=== PATIENT | male | born 1985 | race Caucasian/White ===

== ENCOUNTER 2018-07-04 17:20 | Emergency (ER) | payer OTHER ==
[~2018-07-04] VITALS: Ht 185.4 cm; Wt 108.9 kg
[~2018-07-04 17:20] MED LIST: AMBIEN10 MG PO; PROZAC20 MG; XANAX0.5 MG PO
[2018-07-04] MEDS ORDERED: TRAMADOL HCL 50 MG TAB PO ONE (17:30)
[2018-07-04] MEDS ORDERED: LABETALOL HCL 5 MG/ML 20ML VIAL IV STA (18:03)
--- NOTE | 2018-07-04 18:39 | Diagnostic Imaging Report ---
Exam: Right foot series, 3 views. Clinical History: Right lateral foot pain after walking on treadmill Comparison: None. Findings: 3 views of the right foot. There is normal bone mineralization. Negative for acute, displaced fracture or dislocation. Joint spaces are preserved. Mild soft tissue swelling in the dorsal aspect of the foot. No osteolytic or osteoblastic lesions. Impression: 1. Mild soft tissue swelling in the dorsal aspect of the foot, without underlying bony abnormality. Signed by: Dr. Elvis Aparicio M.D. on 07/04/2018 6:35 PM
== END 2018-07-04 19:23 | disposition home or self-care (01) ==
LOC: ER 17:20
DX: M79.671 Pain in right foot (principal); Y93.A1 Activity, exercise machines primarily for cardiorespiratory conditioning; Y92.39 Other specified sports and athletic area as the place of occurrence of the external cause; F41.9 Anxiety disorder, unspecified; F32.9 Major depressive disorder, single episode, unspecified
CPT/HCPCS: 99283

== ENCOUNTER → 2019-03-14 | Day surgery (SDC) | payer OTHER ==
[~2019-03-14] MED LIST changes: +ATENOLOL50 MG PO; +BACITRACIN 50,000 UNIT VIAL ONE; +BUPIVACAINE 0.5%/EPI 30 ML SDV INJ ONE; +CEFAZOLIN SOD 2 GM/D5W 50ML 50 ML IV ONE; +DEXAMETHASONE SOD PHOS INJ 4 MG/ML VIAL ONE; +FENTANYL CITRATE/PF 100MCG/2 ML INJ ONE; +GLYCOPYRROLATE INJ 1MG/ 5 ML SYR ONE; +HYDROCODONE/APAP 5MG-325MG TAB ONE; +HYDROMORPHONE 2MG/ML 2 MG/ML ML ONE; +KETOROLAC TROMETHAMINE 30 MG/ML VIAL ONE; +LIDOCAINE 2% /EPINEPHRINE 20 ML SDV INJ ONE; +LIDOCAINE HCL 2% LOCAL INJ 5 ML SDV VIAL INJ ONE; +MIDAZOLAM HCL 2 MG/2 ML VIAL ONE; +NEOSTIGMINE 5 MG/5ML SYR ONE; +OMEPRAZOLE40 MG PO; +ONDANSETRON HCL INJ 2MG/ML 2ML 2 MG/ML VIAL ONE; +PAXIL30 MG PO; +PROPOFOL IV EMULSION 10 MG/ML 20 ML VIAL ONE; +ROPIVACAINE 0.5% 5 MG/ML 30 ML SDV ONE; +SEVOFLURANE INHAL SOLN 250 ML PEN BTL ONE; +TRAZODONE HCL50 MG PO; +TYLENOL WITH C1 EACH PO
--- OUTSIDE RECORDS SUMMARY | 2019-03-14 09:01 | XMS REPORT | Encounter Summary ---
Author Organization Unknown Address [address] [place] [address] Phone [phone] Reason for Visit Medical Complaint Instructions 1. Upper respiratory infection upper respiratory infection (cold): care instructions 2. Allergic rhinitis managing your allergies: care instructions Medrol (Jame) 4 mg tablets in a dose pack 3. Pain in throat sore throat: care instructions rapid strep group A, throat Discussion Note: None recorded. Plan of Care Patient Instructions otc zyrtec as needed. follow up pcp Reminders Provider Appointments None recorded. Lab Rapid Strep Group a, Throat 09/21/2017 [facility] Referral None recorded. Procedures None recorded. Surgeries None recorded. Imaging None recorded. Medications Name Start Date atenolol 50 mg tablet colestipol 1 gram tablet Medrol (Jame) 4 mg tablets in a dose pack take as directed paroxetine 20 mg tablet trazodone 100 mg tablet Viberzi 75 mg tablet Medications Administered None recorded. Vitals Height Weight BMI Blood Pressure 6 ft 2 in 230 lbs 29.5 kg/m2 120/80 mm[Hg] Lab Results Date Name Specimen Result Interpretation Description Value Range Status Address Rapid Strep Group a, Throat Result negative [facility]: [address] [place] [address] Swab Location Left and Right tonsillar pillars [facility]: [address] [place] [address] Allergies Code Code System Name Reaction Severity Status Onset NKDA Problems Name Status Onset Date Source Smoker Active Encounter Impacted Cerumen Active Encounter Acute Sinusitis Active Encounter Seasonal Allergy Active Encounter Gastroenteritis Active Encounter Abnormal Blood Pressure Active Encounter Procedures None recorded. Vaccine List Vaccine Type influenza, injectable, quadrivalent 08/07/2017 influenza, seasonal, injectable 08/07/2015 Social History Smoking Status Current Every Day Smoker Past Encounters 09/21/2017 Upper Respiratory Infection; Allergic Rhinitis; Pain in Throat SEBASTIAN Mancuso-C: [address] [place] [address], Ph. History of Present Illness Juekw-Algiuttabr-Iwijaxw Reported By: Patient HPI: Location: head/sinuses, throat. Quality: sore throat, nasal/sinus congestion. Duration: 6days. Severity: moderate. Onset/Timing: gradual. Context: no sick contacts, no foreign travel, non-smoker, allergies. Modifying factors: OTC medication. Associated Symptoms: no sputum production, no shortness of breath, no wheezing, no change in number of pillows needed to sleep at night, no sweats, no significant weight gain, no significant weight loss, no morning cough, no vomiting, no diarrhea, no rash, no nausea, no fever, no muscle aches, no headache, fatigue, sore throat Review of Systems:ROS as noted in the HPI Review of Systems Basic Reported By: Patient Physical Exam Adult Basic, Adult Male Complete Reported By: Patient Constitutional: General Appearance: healthy-appearing, well-nourished, well-developed. Level of Distress: NAD. Ambulation: ambulating normally Psychiatric: Mental Status: active and alert Eyes: Lids and Conjunctivae: non-injected, no discharge Yyd-Mgpe-Jrlmk-Throat: Ears: no lesions on external ear, no outer ear tenderness, EACs clear, TMs clear, TM mobility normal. Hearing: no hearing loss. Nose: no lesions on external nose, nasal discharge--rhinorrhea; congestion. Lips, Teeth, and Gums: no mouth or lip ulcers. Oropharynx: moist mucous membranes, no erythema, no exudates, tonsils not enlarged Neck: Neck: trachea midline. Lymph Nodes: no cervical LAD Lungs: Respiratory effort: no dyspnea, no tachypnea, no use of accessory muscles, no intercostal retractions. Auscultation: breath sounds normal, good air movement Cardiovascular: Heart Auscultation: RRR, no murmurs
--- OUTSIDE RECORDS SUMMARY | 2019-03-14 09:01 | XMS REPORT | Continuity of Care Document ---
Author Author [facility] Interface Address Unknown Phone Unavailable Problems Problem Status Onset Date Classification Date Reported Comments Source Hypertensive disorder 02/12/2019 Diagnosis 02/12/2019 [facility] Acute tonsillitis 02/12/2019 Diagnosis 02/12/2019 [facility] Abnormal blood pressure 02/01/2019 Diagnosis 02/12/2019 [facility] Body mass index 30+ - obesity 02/01/2019 Diagnosis 02/12/2019 [facility] Seasonal allergic rhinitis 02/01/2019 Diagnosis 02/12/2019 [facility] Generalized aches and pains 02/01/2019 Diagnosis 02/12/2019 [facility] Tachycardia 02/01/2019 Diagnosis 02/12/2019 [facility] Streptococcal sore throat 02/01/2019 Diagnosis 02/12/2019 [facility] Elevated blood-pressure reading without diagnosis of hypertension 06/12/2018 Diagnosis 06/12/2018 [facility] Tinea corporis 06/12/2018 Diagnosis 06/12/2018 [facility] Hidradenitis suppurativa 06/12/2018 Diagnosis 06/12/2018 [facility] Tinea Corporis 06/12/2018 Problem 06/12/2018 [facility] Body Mass Index 30+ - Obesity 06/12/2018 Problem 06/12/2018 [facility] Anxiety 06/12/2018 Problem 02/12/2019 [facility] Gastroesophageal Reflux Disease 06/12/2018 Problem 02/12/2019 [facility] Irritable Bowel Syndrome 06/12/2018 Problem 06/12/2018 [facility] Hidradenitis Suppurativa 06/12/2018 Problem 06/12/2018 [facility] Elevated Blood-pressure Reading without Diagnosis of Hypertension 06/12/2018 Problem 06/12/2018 [facility] Venereal disease screening 04/11/2018 Diagnosis 04/11/2018 [facility] Body mass index 25-29 - overweight 04/11/2018 Diagnosis 04/11/2018 [facility] Urinary tract infectious disease 04/11/2018 Diagnosis 04/11/2018 [facility] Body Mass Index 25-29 - Overweight 04/11/2018 Problem 06/12/2018 [facility] Urinary Tract Infectious Disease 04/11/2018 Problem 04/11/2018 [facility] Venereal Disease Screening 04/11/2018 Problem 04/11/2018 [facility] Candidiasis of mouth 11/24/2017 Diagnosis 11/24/2017 [facility] Cigarette smoker 11/24/2017 Diagnosis 11/24/2017 [facility] Upper respiratory infection 09/21/2017 Diagnosis 09/21/2017 [facility] Allergic rhinitis 09/21/2017 Diagnosis 09/21/2017 [facility] Pain in throat 09/21/2017 Diagnosis 09/21/2017 [facility] Smoker Problem 11/24/2017 [facility] Impacted Cerumen Problem 11/24/2017 [facility] Acute Sinusitis Problem 11/24/2017 [facility] Seasonal Allergy Problem 11/24/2017 [facility] Gastroenteritis Problem 11/24/2017 [facility] Abnormal Blood Pressure Problem 11/24/2017 [facility] Medications Medication Details Route Status Patient Instructions Ordering Provider Order Date Source Atenolol 50 MG Oral Tablet atenolol 50 mg tablet Take 1 tablet every day by oral route as directed for 30 days. Active [facility] Colestipol Hydrochloride 1000 MG Oral Tablet colestipol 1 gram tablet Active [facility] Medrol (Jame) 4 mg tablets in a dose pack Medrol (Jame) 4 mg tablets in a dose pack take as directed Active [facility] Paroxetine Hydrochloride 20 MG Oral Tablet paroxetine 20 mg tablet Active [facility] Trazodone Hydrochloride 100 MG Oral Tablet trazodone 100 mg tablet TAKE 1 TABLET BY MOUTH AT BEDTIME NEEDED FOR INSOMNIA Active [facility] eluxadoline 75 MG Oral Tablet [Viberzi] Viberzi 75 mg tablet Active [facility] Sulfamethoxazole 800 MG / Trimethoprim 160 MG Oral Tablet [Bactrim] Bactrim DS 800 mg-160 mg tablet Take 1 tablet every 12 hours by oral route as directed for 7 days. Active [facility] Paroxetine Hydrochloride 30 MG Oral Tablet paroxetine 30 mg tablet TAKE 1 TABLET BY MOUTH AT BEDTIME Active [facility] Dicyclomine Hydrochloride 20 MG Oral Tablet dicyclomine 20 mg tablet Active [facility] Cephalexin 500 MG Oral Capsule [Keflex] Keflex 500 mg capsule Take 1 capsule every 12 hours by oral route as directed for 10 days. Active [facility] Ketoconazole 20 MG/ML Topical Cream ketoconazole 2 % topical cream APPLY TO THE AFFECTED AREA(S) BY TOPICAL ROUTE ONCE DAILY X 2 WEEKS Active [facility] Omeprazole 40 MG Delayed Release Oral Capsule omeprazole 40 mg capsule,delayed release TAKE 1 CAPSULE BY MOUTH EVERY DAY Active [facility] Lidocaine Hydrochloride 20 MG/ML Mucous Membrane Topical Solution Lidocaine Viscous 2 % mucosal solution Take 2.5 mL every 3 hours by oral route as needed. Active [facility] Nystatin 315303 UNT/ML Oral Suspension nystatin 100,000 unit/mL oral suspension Take 6 mL 4 times a day by oral route as directed for 10 days. Active [facility] Ondansetron 4 MG Disintegrating Oral Tablet ondansetron 4 mg disintegrating tablet DISSOLVE 1 TABLET BY MOUTH EVERY 6 HOURS NEEDED FOR NAUSEA AND VOMITING Active [facility] Amoxicillin 875 MG Oral Tablet amoxicillin 875 mg tablet Take 1 tablet every 12 hours by oral route as directed for 10 days. Active [facility] Azithromycin 250 MG Oral Tablet Zithromax Z-Jame 250 mg tablet TAKE 2 TABLETS (500 MG) BY ORAL ROUTE ONCE DAILY FOR 1 DAY THEN 1 TABLET (250 MG) BY ORAL ROUTE ONCE DAILY FOR 4 DAYS Active [facility] Alprazolam (Xanax) 0.5 Mg Tablet Twice A Day Active [facility] Fluoxetine Hcl (Prozac) 20 Mg Capsule Daily Active [facility] Zolpidem Tartrate (Ambien) 10 Mg Tablet Bedtime Active [facility] Allergies, Adverse Reactions, Alerts Substance Category Reaction Severity Reaction type Status Date Reported Comments Source Immunizations Immunization Date Given Site Status Last Updated Comments Source Tdap 11/08/2018 completed [facility] influenza, injectable, quadrivalent 08/14/2018 completed [facility] influenza, injectable, quadrivalent 08/07/2017 completed [facility] influenza, seasonal, injectable 08/07/2015 completed [facility] Results Order Name Results Value Reference Range Date Interpretation Comments Source RESULT negative 02/12/2019 [facility] SWAB LOCATION Left and Right tonsillar pillars 02/12/2019 [facility] Influenza A negative 02/12/2019 [facility] Influenza B negative 02/12/2019 [facility] RESULT positive 02/12/2019 [facility] SWAB LOCATION Left and Right tonsillar pillars 02/12/2019 [facility] Influenza A negative 02/01/2019 [facility] Influenza B negative 02/01/2019 [facility] RESULT positive 02/01/2019 [facility] SWAB LOCATION Left and Right tonsillar pillars 02/01/2019 [facility] Urinalysis macro (dipstick) panel - Urine COLOR : Lily 04/11/2018 [facility] Urinalysis macro (dipstick) panel - Urine CLARITY : Cloudy 04/11/2018 [facility] Urinalysis macro (dipstick) panel - Urine LEUKOCYTES : Negative 04/11/2018 [facility] Urinalysis macro (dipstick) panel - Urine NITRITES : Negative 04/11/2018 [facility] Urinalysis macro (dipstick) panel - Urine UROBILINOGEN : Normal 04/11/2018 [facility] Urinalysis macro (dipstick) panel - Urine PROTEIN : Trace 04/11/2018 [facility] Urinalysis macro (dipstick) panel - Urine pH : 8.0 04/11/2018 [facility] Urinalysis macro (dipstick) panel - Urine BLOOD : Negative 04/11/2018 [facility] Urinalysis macro (dipstick) panel - Urine SPECIFIC GRAVITY : 1.015 04/11/2018 [facility] Urinalysis macro (dipstick) panel - Urine KETONES : Negative 04/11/2018 [facility] Urinalysis macro (dipstick) panel - Urine BILIRUBIN : Negative 04/11/2018 [facility] Urinalysis macro (dipstick) panel - Urine GLUCOSE Negative 04/11/2018 [facility] RESULT negative 09/21/2017 [facility] SWAB LOCATION Left and Right tonsillar pillars 09/21/2017 [facility] Vital Signs Vital Sign Value Date Comments Source Diastolic (mm Hg) 80 02/12/2019 [facility] Height 74 02/12/2019 [facility] Systolic (mm Hg) 120 02/12/2019 [facility] Weight 252 02/12/2019 [facility] Diastolic (mm Hg) 76 02/01/2019 [facility] Height 74 02/01/2019 [facility] Systolic (mm Hg) 120 02/01/2019 [facility] Weight 252 02/01/2019 [facility] Diastolic (mm Hg) 78 06/12/2018 [facility] Height 74 06/12/2018 [facility] Systolic (mm Hg) 120 06/12/2018 [facility] Weight 235 06/12/2018 [facility] Diastolic (mm Hg) 78 04/11/2018 [facility] Height 74 04/11/2018 [facility] Systolic (mm Hg) 114 04/11/2018 [facility] Weight 228 04/11/2018 [facility] Diastolic (mm Hg) 86 11/24/2017 [facility] Height 74 11/24/2017 [facility] Systolic (mm Hg) 122 11/24/2017 [facility] Weight 228 11/24/2017 [facility] Diastolic (mm Hg) 80 09/21/2017 [facility] Height 74 09/21/2017 [facility] Systolic (mm Hg) 120 09/21/2017 [facility] Weight 230 09/21/2017 [facility] Encounters Location Location Details Encounter Type Encounter Number Reason For Visit Attending Provider ADM Date DC Date Status Source [place] - [facility] - [id number] Varinder Ramirez, [employer]IOR [employer]OPER-C: [address] [place] [address], Ph. [phone] [id number] Varinder Ramirez 09/21/2017 [facility] [place] [facility] - [id number] Clarisamiriam Sosa, S[employer]IOR IN[employer] DEVELOPER-C: [address] [place] [address], Ph. [id number] Clarisa Sosa 11/24/2017 [facility] [place] [facility] - [id number] Clarisamiriam Sosa, S[employer]IOR IN[employer] DEVELOPER-C: [address] [place] [address], Ph. [id number] Clarisa Sosa 04/11/2018 [facility] [place] [facility] - [id number] Clarisamiriam Sosa SENIOR IN[employer] DEVELOPER-C: [address] [place] [address], Ph. [id number] Clarisa Sosa 06/12/2018 [facility] Departed Emergency Room [id number] VIRGIL DILLARD MD 07/04/2018 07/04/2018 [facility] [place] - [facility] - [id number] Raiza Ramirez, SENIOR INFORMATICA DEVELOPER: [address] [place] [address], Ph. [id number] Raiza Ramirez 02/01/2019 [facility] [place] [facility] - [id number] Raiza Ramirez, SENIOR INFORMATICA DEVELOPER: [address] [place] [address], Ph. [id number] Raiza Ramirez 02/01/2019 [facility] [place] [facility] [id number] Mima Hurtado, SENIOR IN[employer] DEVELOPER-C: [address] [place] [address], Ph. [id number] Mima Hurtado 02/12/2019 [facility] Procedures Procedure Code Date Perfomer Comments Source Fistula Repair & Colostomy 31235 04/05/2018 [facility] Leg Surgery Procedure [id number] [facility]
--- OUTSIDE RECORDS SUMMARY | 2019-03-14 09:01 | XMS REPORT | Encounter Summary ---
Author Organization Unknown Address [address] [place] [address] Phone [phone] Reason for Visit Medical Complaint Instructions 1. Streptococcal sore throat rapid strep group A, throat strep throat: care instructions amoxicillin 875 mg tablet 2. Tachycardia atenolol 50 mg tablet 3. Generalized aches and pains rapid flu (A+B) 4. Seasonal allergic rhinitis 5. Body mass index 30+ - obesity learning about healthy weight 6. Abnormal blood pressure Discussion Note Work note given to RTW 02/05/19 Plan of Care Patient Instructions Take antibiotic as prescribed. Handwashing. Increase fluid intake and plenty of rest. May take tynenol/motrin for pain. may use cloraseptic throat spray for sore throat. Gargles warm salt water, cepacol. Throw away old toothbrush after 3 days of antibiotic. Avoid sharing drinks/utensils. If no improvement in 3 days, or worsening of symptoms, see primary care physician or call clinic. ok to continue flonase, add zyrtec 10mg daily for allergies Continue to check bp at home. If trend over 130/90s, follow up with pcp. Avoid otc decongestants. Reminders Provider Appointments None recorded. Lab Rapid Strep Group a, Throat 02/01/2019 [facility] Rapid Flu (A+B) 02/01/2019 [facility] Referral None recorded. Procedures None recorded. Surgeries None recorded. Imaging None recorded. Medications Name Start Date amoxicillin 875 mg tablet Take 1 tablet every 12 hours by oral route as directed for 10 days. atenolol 50 mg tablet Take 1 tablet every day by oral route as directed for 30 days. omeprazole 40 mg capsule,delayed release TAKE 1 CAPSULE BY MOUTH EVERY DAY paroxetine 30 mg tablet TAKE 1 TABLET BY MOUTH AT BEDTIME trazodone 100 mg tablet TAKE 1 TABLET BY MOUTH AT BEDTIME NEEDED FOR INSOMNIA Medications Administered None recorded. Vitals Height Weight BMI Blood Pressure 6 ft 2 in 252 lbs 32.4 kg/m2 (1) 120/76 mm[Hg] (2) 120/76 mm[Hg] Lab Results Date Name Specimen Result Interpretation Description Value Range Status Address Rapid Flu (A+B) Influenza a negative [facility]: [address] [facility] Influenza B negative [facility]: [address] [facility] Rapid Strep Group a, Throat Result positive [facility]: [address] [facility] Swab Location Left and Right tonsillar pillars [facility]: [address] [facility] Allergies Code Code System Name Reaction Severity Status Onset NKDA Problems Name Status Onset Date Source Anxiety Active 06/12/2018 Gastroesophageal Reflux Disease Active 06/12/2018 Procedures Date Name Performed by 04/05/2018 Fistula Repair & Colostomy Information not available Leg Surgery Procedure Information not available Vaccine List Vaccine Type influenza, injectable, quadrivalent 08/14/2018 influenza, seasonal, injectable 08/07/2015 Tdap 11/08/2018 Social History Smoking Status Former Smoker Past Encounters 02/01/2019 Streptococcal Sore Throat; Tachycardia; Generalized Aches and Pains; Seasonal Allergic Rhinitis; Body Mass Index 30+ - Obesity; Abnormal Blood Pressure RAPHAEL AhmadiP: [address] [facility] [place] [address], Ph. History of Present Illness Throat-Oral Complaint Reported By: Patient HPI: Location: throat. Quality: sore throat. Severity: severe. Duration: 3 days. Onset/Timing: sudden. Context: no sick contacts, no foreign travel, non-smoker. Modifying factors: OTC medication. Associated Symptoms: no fever, no headache, no sputum production, no shortness of breath, no wheezing, no change in number of pillows needed to sleep at night, no sweats, no significant weight gain, no significant weight loss, no morning cough, no vomiting, no diarrhea, no rash, no nausea, body aches, sore throat One Time Refill Reported By: Patient HPI: Context: Patient here for medication refill, Why does patient require med refills at [facility]? (double click for free text answer). Quality: What medical problems does patient require refills for? (double click for free text), What medications does patient require refills for? (double click for free text). Duration: How long has patient been taking above medications? > 1 year. Onset/Timing: How long has patient been out of medication? still has some Review of Systems Basic Reported By: Patient Constitutional: Constitutional: no fever Eyes: Eyes: no eye complaints Ylyp-Bbxr-Ismen-Throat: Ears: no ear complaints. Nose: no nose/sinus problems. Mouth/Throat: no bleeding gums, no mouth complaints, no teeth problems, sore throat Cardiovascular: Cardiovascular: no chest pain, no shortness of breath, no known heart murmur Respiratory: Respiratory: no cough, no wheezing, no shortness of breath Gastrointestinal: Gastrointestinal: no abdominal pain, no vomiting / diarrhea Genitourinary: Genitourinary: no urinary complaints, no discharge Musculoskeletal: Musculoskeletal: no muscle weakness, no arthralgias/joint pain, no back pain, muscle aches Skin: Skin: no abnormal / changing mole, no jaundice, no rashes Neurologic: Neurologic: no loss of consciousness, no weakness, no numbness, no seizures, no dizziness, no headaches Physical Exam Adult Basic, Adult Female Complete, Adult Male Complete, 14-21 Yr Females Reported By: Patient Constitutional: General Appearance: obese. Level of Distress: acutely ill. Ambulation: ambulating normally Psychiatric: Mental Status: active and alert, normal affect, normal mood. Orientation: to time, to place, to person Eyes: Lids and Conjunctivae: non-injected, no discharge, no pallor. Pupils: PERRLA, equal size, round, reactive to light. Corneas: grossly intact. EOM: EOMI, normal cover/uncover test. Lens: clear. Sclerae: non-icteric. Vision: acuity grossly intact Trp-Hwjp-Shyzo-Throat: Ears: no lesions on external ear, no outer ear tenderness, EACs clear, TMs clear, middle ear fluid. Hearing: no hearing loss. Nose: no lesions on external nose, nares patent, no septal deviation, nasal passages clear, no sinus tenderness, no nasal discharge; rhinitis. Lips, Teeth, and Gums: no mouth or lip ulcers, no bleeding gums, normal dentition. Oropharynx: moist mucous membranes, erythema, exudates, tonsils enlarged 2+ Neck: Neck: supple, trachea midline, no masses, FROM. Lymph Nodes: no supraclavicular LAD, anterior cervical LAD. Thyroid: no enlargement, non-tender, no nodules, no asymmetry Lungs: Respiratory effort: no dyspnea, no tachypnea, no use of accessory muscles, no intercostal retractions. Auscultation: breath sounds normal, clear to auscultation, no wheezing, no rales/crackles, no rhonchi, no retractions Cardiovascular: Heart Auscultation: RRR, no murmurs, no gallops, no rub, normal femoral pulse. Neck vessels: no carotid bruits. Apical impulse: not displaced. Rate and rhythm: regular
--- OUTSIDE RECORDS SUMMARY | 2019-03-14 09:01 | XMS REPORT | Clinical Summary ---
Author Author [facility] Address Unknown Phone Unavailable Care Team Providers Care Public Health Technologist Name Role Phone Warren Hanks MD PCP Allergies Comments Active Allergy Reactions Severity Noted Date No Known Drug Allergies 09/27/2016 Medications End Date Status Medication Sig Dispensed Refills Start Date Active sertraline (ZOLOFT) 50 MG Take 50 mg by 0 tablet mouth daily. Active atenolol (TENORMIN) 50 MG TK 1 T PO D 2 tablet 7 Active temazepam (RESTORIL) 15 Take 15 mg by 0 mg capsule mouth nightly 7 as needed. Active PARoxetine (PAXIL) 30 MG Take 30 mg by 0 tablet mouth every morning. Active traZODone (DESYREL) 100 Take 100 mg 0 MG tablet by mouth nightly as needed for sleep. Active omeprazole (PriLOSEC) 40 Take 40 mg by 0 MG capsule mouth daily. Active dicyclomine (BENTYL) 20 Take 20 mg by 0 mg tablet mouth 4 (four) times a day. 03/16/2019 Active acetaminophen-codeine Take 1-2 15 tablet 0 (TYLENOL WITH CODEINE #3) tablets by 9 300-30 mg per tablet mouth every 6 (six) hours as needed for moderate pain for up to 5 days. 03/16/2019 Active cyclobenzaprine Take 1 tablet 15 tablet 0 (FLEXERIL) 10 mg tablet (10 mg total) 9 by mouth 2 (two) times a day as needed for muscle spasms for up to 5 days. Active Problems Problem Noted Date Pilonidal cyst without abscess 09/27/2016 Encounters Care Team Description Date Type Specialty Aida Gambino MD Closed displaced comminuted fracture of shaft of left humerus, initial encounter (Primary Dx) 03/11/2019 Emergency Emergency Medicine Denisha Dias 07/17/2018 Documentation General Surgery Harry Mauricio MD Anal fistula (Primary Dx) 05/24/2018 Office Visit General Surgery Harry Mauricio MD Anal fistula (Primary Dx) 04/19/2018 Office Visit General Surgery Harry Mauricio MD Anal fistula (Primary Dx) 03/15/2018 Office Visit General Surgery after 03/13/2018 Family History Medical History Relation Name Comments Cancer Maternal urinary bladder Grandmother Lymphoma Paternal Grandmother Relation Name Status Comments Maternal Grandmother Mother Alive Paternal Grandmother Social History Date Tobacco Use Types Packs/Day Years Used Current Every Day Smoker 16 Smokeless Tobacco: Never Used Comments: 1 PPW Alcohol Use Drinks/Week oz/Week Comments Yes 5 Cans of 3.0 socially beer Sex Assigned at Date Recorded Not on file Industry Job Start Date Occupation Not on file Not on file Not on file Travel End Travel History Travel Start No recent travel history available. Last Filed Vital Signs Time Taken Vital Sign Reading 03/11/2019 5:56 AM CDT Blood Pressure 118/62 03/11/2019 5:56 AM CDT Pulse 80 03/11/2019 2:06 AM CDT Temperature 36.5 C (97.7 F) 03/11/2019 5:56 AM CDT Respiratory Rate 18 03/11/2019 5:56 AM CDT Oxygen Saturation 99% - Inhaled Oxygen - Concentration 03/11/2019 2:07 AM CDT Weight 111 kg (245 lb) 03/11/2019 2:07 AM CDT Height 185.4 cm (6' 1") 03/11/2019 2:07 AM CDT Body Mass Index 32.32 Plan of Treatment Health Maintenance Due Date Last Done Comments INFLUENZA VACCINE 06/07/2019 08/07/2017, 08/07/2015 Procedures Comments Procedure Name Priority Date/Time Associated Diagnosis XR HUMERUS LEFT STAT 03/11/2019 4:47 AM CDT XR ELBOW 2 VW LEFT STAT 03/11/2019 3:34 AM CDT XR FOREARM 2 VW LEFT STAT 03/11/2019 3:33 AM CDT SPLINT APPLICATION Routine 03/11/2019 3:21 AM CDT after 03/13/2018 Results * XR Humerus Left (03/11/2019 4:47 AM CDT) Narrative Performed At EXAMINATION:XR HUMERUS LEFT RADIANT CLINICAL HISTORY:Fracturehumerus COMPARISON:Left elbow series dated 03/11/2019 at 2:15 AM IMPRESSION: Overlying cast has been placed, obscuring visualization of details. Acute somewhat comminuted fracture of the distal diaphysis of the left humerus is seen. Visualized fracture fragments are improved in alignment when compared with previous exam. There is 0.7 cm lateral subluxation of distal fracture fragment with regard to proximal. Visualized joint spaces are anatomic. Soft tissue swelling is seen about the fracture site. [id number] Procedure Note Interface, Radiology Results Incoming - 03/11/2019 5:12 AM CDT EXAMINATION: XR HUMERUS LEFT CLINICAL HISTORY: Fracture humerus COMPARISON: Left elbow series dated 03/11/2019 at 2:15 AM IMPRESSION: Overlying cast has been placed, obscuring visualization of details. Acute somewhat comminuted fracture of the distal diaphysis of the left humerus is seen. Visualized fracture fragments are improved in alignment when compared with previous exam. There is 0.7 cm lateral subluxation of distal fracture fragment with regard to proximal. Visualized joint spaces are anatomic. Soft tissue swelling is seen about the fracture site. [id number] Performing Organization Address City/State/Zipcode Phone Number [facility] [address] [place] [address] * XR Elbow 2 Vw Left (03/11/2019 3:34 AM CDT) Narrative Performed At EXAMINATION:XR ELBOW 2 VW LEFT RADIANT CLINICAL HISTORY:arm pain after arm wrestling COMPARISON:None. IMPRESSION: Acute fracture of the distal humerus is seen. There is 2.1 cm diastasis of fracture fragments. Visualized joint spaces are anatomic. Soft tissue swelling about the fracture site is seen. [id number] Procedure Note Interface, Radiology Results Incoming - 03/11/2019 4:40 AM CDT EXAMINATION: XR ELBOW 2 VW LEFT CLINICAL HISTORY: arm pain after arm wrestling COMPARISON: None. IMPRESSION: Acute fracture of the distal humerus is seen. There is 2.1 cm diastasis of fracture fragments. Visualized joint spaces are anatomic. Soft tissue swelling about the fracture site is seen. [id number] Performing Organization Address [facility] Phone Number [facility] [address] [place] [address] * XR Forearm 2 Vw Left (03/11/2019 3:33 AM CDT) Narrative Performed At EXAMINATION:XR FOREARM 2 VW LEFT RADIANT CLINICAL HISTORY:arm pain COMPARISON:None. IMPRESSION: Acute fracture of the distal diaphysis of the left humerus is seen. There is 2.3 cm anterior subluxation of proximal fracture fragment with regard to distal, with posterior angulation at fracture site. Questionable fracture of base of fifth metacarpal. This would be better assessed with dedicated left hand series. Visualized joint spaces are anatomic. Soft tissue swelling about the humerus fracture site is seen. [id number] Procedure Note Hm Interface, Radiology Results Incoming - 03/11/2019 5:08 AM CDT EXAMINATION: XR FOREARM 2 VW LEFT CLINICAL HISTORY: arm pain COMPARISON: None. IMPRESSION: Acute fracture of the distal diaphysis of the left humerus is seen. There is 2.3 cm anterior subluxation of proximal fracture fragment with regard to distal, with posterior angulation at fracture site. Questionable fracture of base of fifth metacarpal. This would be better assessed with dedicated left hand series. Visualized joint spaces are anatomic. Soft tissue swelling about the humerus fracture site is seen. [facility]-[id number] Performing Organization Address [facility] Phone Number [facility] [address] [place] [address] * Splint Application (03/11/2019 3:21 AM CDT) Narrative Performed At Aida Gambino MD 03/11/20195:32 AM Splint Application Performed by: Aida Gambino MD Authorized by: Aida Gambino MD Consent: Consent obtained:Verbal Consent given by:Patient Risks discussed:Pain Pre-procedure details: Sensation:Normal Procedure details: Laterality:Left Location:Arm Arm:L upper arm Splint type: coaptation. Supplies:Cotton padding, Ortho-Glass and sling Post-procedure details: Pain:Improved Sensation:Normal Patient tolerance of procedure:Tolerated well, no immediate complications after 03/13/2018 Insurance Payer Benefit Subscriber ID Type Phone Address Plan / Group [facility] xxxxxxxxx HMO/PPO THCARE CHOICE/CHO ICE + Advance Directives Patient has advance care planning documents on file. For more information, lalita tan contact: Johnathan Oconnor [address] [place] [address]
--- OUTSIDE RECORDS SUMMARY | 2019-03-14 09:02 | XMS REPORT | Encounter Summary ---
Author Organization Unknown Address [address] [place] [address] Phone [phone] Reason for Visit Medical Complaint Instructions 1. Urinary tract infectious disease urinary tract infections in men: care instructions urinalysis, dipstick culture, urine Bactrim DS 800 mg-160 mg tablet patient follow up phone call 2. Venereal disease screening CT + NG DNA, PCR, unspecified specimen 3. Body mass index 25-29 - overweight body mass index: care instructions Discussion Note Pt is in NAD; Verbalizes understanding of all instructions with no questions at this time. Plan of Care Patient Instructions Recommend proper hydration and frequent urination. Recommend urinating after sexual intercourse. Avoid using tubs. Take medications as prescribed. Follow up with your PCP within 2-3 days if symptoms worsen as discussed. Recommend follow a low sodium/fat/carb diet and exercise 30-45 mins/d 3-4 days a week once symptoms resolve. In case of an emergency call 911 or go to nearest ER. Reminders Provider Appointments None recorded. Lab Urinalysis, Dipstick 04/11/2018 [facility] Culture, Urine 04/11/2018 [facility] CT + NG DNA, PCR, Unspecified Specimen 04/11/2018 [facility] Referral None recorded. Procedures None recorded. Surgeries None recorded. Imaging None recorded. Medications Name Start Date atenolol 50 mg tablet TAKE 1 TABLET BY MOUTH EVERY DAY Bactrim DS 800 mg-160 mg tablet Take 1 tablet every 12 hours by oral route as directed for 7 days. paroxetine 30 mg tablet TAKE 1 TABLET BY MOUTH AT BEDTIME trazodone 100 mg tablet TAKE 1 TABLET(S) BY MOUTH AT BEDTIME NEEDED Medications Administered None recorded. Vitals Height Weight BMI Blood Pressure 6 ft 2 in 228 lbs 29.3 kg/m2 114/78 mm[Hg] Lab Results Date Name Specimen Result Interpretation Description Value Range Status Address Urinalysis, Dipstick Color : Lily [facility]: [address] [place] [address] Clarity : Cloudy [facility]: [address] [place] [address] Leukocytes : Negative [facility]: [facility] Nitrites : Negative [facility]: 9 [facility] Urobilinogen : Normal [facility]: 9 [facility] Protein : Trace [facility]: 9 [facility] Ph : 8.0 [facility]: 9 [facility] Blood : Negative [facility]: [facility] Specific [place] : 1.015 [facility]: 9 [facility] Ketones : Negative [facility]: 9 [facility] Bilirubin : Negative [facility]: 9 [facility] Glucose Negative [facility]: 9 [facility] Allergies Code Code System Name Reaction Severity Status Onset NKDA Problems Name Status Onset Date Source Body Mass Index 25-29 - Overweight Active 04/11/2018 Urinary Tract Infectious Disease Active 04/11/2018 Venereal Disease Screening Active 04/11/2018 Procedures Date Name Performed by 04/05/2018 Fist[facility] Repair [facility] Colostomy Information not available Vaccine List Vaccine Type influenza, injectable, quadrivalent 08/07/2017 influenza, seasonal, injectable 08/07/2015 Social History Smoking Status Former Smoker Past Encounters 04/11/2018 Urinary Tract Infectious Disease; Venereal Disease Screening; Body Mass Index 25-29 - Overweight Clarisa Sosa, [facility]-C: [address] [place] [address], Ph. History of Present Illness [id number]-Hernia Reported By: Patient HPI: Location: bladder. Quality: pressure. Severity: moderate. Duration: constant. Onset/Timing: worse, gradual. Context: no prior history of STDs, no known exposure to STD, sexually active, heterosexual; Pt had an anal fistulectomy done about a week ago. Pt is afebrile. Modifying factors nothing gives relief. Associated Symptoms: no muscle aches, no fever/chills, no headache, no penile lesions/sores, no scrotal lesions/sores, no penile discharge, no flank pain, no jaundice, no blood in the urine, pain during urination; and suprapubic pain Review of Systems Basic Reported By: Patient Constitutional: Constitutional: no fever Eyes: Eyes: no eye complaints Gcaa-Jvsj-Mwulq-Throat: Ears: no ear complaints. Nose: no nose/sinus problems. Mouth/Throat: no sore throat, no bleeding gums, no mouth complaints, no teeth problems Cardiovascular: Cardiovascular: no chest pain, no shortness of breath, no known heart murmur Respiratory: Respiratory: no cough, no wheezing, no shortness of breath Gastrointestinal: Gastrointestinal: no abdominal pain, no vomiting / diarrhea Genitourinary: Genitourinary: no discharge, dysuria; and suprapubic pain Musculoskeletal: Musculoskeletal: no muscle aches, no muscle weakness, no arthralgias/joint pain, no back pain Skin: Skin: no abnormal / changing mole, no jaundice, no rashes Neurologic: Neurologic: no loss of consciousness, no weakness, no numbness, no seizures, no dizziness, no headaches Physical Exam Adult Basic, Adult Male Complete Reported By: Patient Constitutional: General Appearance: healthy-appearing, well-nourished, well-developed, overweight. Level of Distress: NAD. Ambulation: ambulating normally Psychiatric: Mental Status: active and alert. Orientation: to time, to place, to person Eyes: Lids and Conjunctivae: non-injected Neck: Neck: supple. Lymph Nodes: no cervical LAD Lungs: Respiratory effort: no dyspnea, no tachypnea, no use of accessory muscles, no intercostal retractions. Auscultation: breath sounds normal, good air movement Cardiovascular: Heart Auscultation: RRR, no murmurs Abdomen: Bowel Sounds: normal. Inspection and Palpation: soft, no tenderness, no guarding, no rebound tenderness, no masses, no CVA tenderness. Hernia: none palpable
--- OUTSIDE RECORDS SUMMARY | 2019-03-14 09:02 | XMS REPORT | Encounter Summary ---
Author Organization Unknown Address [address] [place] [address] Phone [phone] Reason for Visit Medical Complaint Instructions 1. Candidiasis of mouth candidiasis: care instructions nystatin 100,000 unit/mL oral suspension Lidocaine Viscous 2 % mucosal solution 2. Cigarette smoker Discussion Note Pt is in NAD; Verbalizes understanding of all instructions with no questions at this time. Plan of Care Patient Instructions Swish and spit Nystatin suspension as directed for oral thrush.Alternate with Ibuprofen and acetaminophen every 4hrs as needed for pain. Use a q tip and saturate it with viscous lidocaine and use as directed on sore. Alternate with Ibuprofen and acetaminophen every 4hrs as needed for pain Proper hydration and rest. Do not share any utensils/cups, no kissing. Frequent handwashing recommended. Take medications as prescribed. Return to clinic or follow up with your PCP within 2-3 days if symptoms worsen as discussed. I recommend smoking cessation. Reminders Provider Appointments None recorded. Lab None recorded. Referral None recorded. Procedures None recorded. Surgeries None recorded. Imaging None recorded. Medications Name Start Date atenolol 50 mg tablet TAKE 1 TABLET BY MOUTH EVERY DAY colestipol 1 gram tablet dicyclomine 20 mg tablet TAKE 1 TABLET BY MOUTH 3 TIMES A DAY NEEDED FOR MILD PAIN Lidocaine Viscous 2 % mucosal solution Take 2.5 mL every 3 hours by oral route as needed. nystatin 100,000 unit/mL oral suspension Take 6 mL 4 times a day by oral route as directed for 10 days. ondansetron 4 mg disintegrating tablet DISSOLVE 1 TABLET BY MOUTH EVERY 6 HOURS NEEDED FOR NAUSEA AND VOMITING paroxetine 30 mg tablet TAKE 1 TABLET BY MOUTH AT BEDTIME trazodone 100 mg tablet TAKE 1 TABLET(S) BY MOUTH AT BEDTIME NEEDED Medications Administered None recorded. Vitals Height Weight BMI Blood Pressure 6 ft 2 in 228 lbs 29.3 kg/m2 122/86 mm[Hg] Lab Results None recorded. Allergies Code Code System Name Reaction Severity [...] Status Current Every Day Smoker Past Encounters 11/24/2017 Candidiasis of Mouth; Cigarette Smoker Clarisa Sosa, [employer]: [address] [place] [address], Ph. History of Present Illness Throat-Oral Complaint Reported By: Patient HPI: Location: ; togue. Quality: ; pain. Severity: moderate, pain level /10. Duration: ; sore lesion on back of tongue since this morning and white patches on tongue x 4 days. Onset/Timing: sudden. Context: no sick contacts, no foreign travel, smoker; Pt reports he finished yesterday a 2-week course of ciprofloxacin and metronidazole for treatment of bacterial gastroenteritis. Last colonoscopy on 08/2017: benign polyps. Modifying factors: ; none. Associated Symptoms: no fever, no headache, no body aches, no sputum production, no shortness of breath, no wheezing, no change in number of pillows needed to sleep at night, no sweats, no significant weight gain, no significant weight loss, no morning cough, no sore throat, no vomiting, no diarrhea, no rash, no nausea; sore lesion on back of tongue since this morning and white patches on tongue Note:
Review of Systems:ROS as noted in the HPI Review of Systems Basic Reported By: Patient Physical Exam Adult Basic, 14-21 Yr Male, Adult Female Complete, Adult Male Complete Reported By: Patient Constitutional: General Appearance: healthy-appearing, well-nourished, well-developed. Level of Distress: NAD. Ambulation: ambulating normally Psychiatric: Mental Status: active and alert. Orientation: to time, to place, to person Pov-Bqrd-Qcqzb-Throat: Ears: no lesions on external ear, no outer ear tenderness, EACs clear, TMs clear. Hearing: no hearing loss. Nose: no lesions on external nose, nares patent, no septal deviation, nasal passages clear, no sinus tenderness, no nasal discharge. Lips, Teeth, and Gums: no mouth or lip ulcers, no bleeding gums, normal dentition; white plaques on tongue. Oropharynx: moist mucous membranes, no erythema, no exudates, tonsils not enlarged Neck: Lymph Nodes: no cervical LAD Lungs: Respiratory effort: no dyspnea, no tachypnea, no use of accessory muscles, no intercostal retractions. Auscultation: breath sounds normal Cardiovascular: Heart Auscultation: RRR, no murmurs Neurologic: Gait and Station: normal gait, normal station Skin: Inspection and palpation: ulcer; white patches on tongue
--- OUTSIDE RECORDS SUMMARY | 2019-03-14 09:02 | XMS REPORT ---
Author Author [facility] Address Unknown Phone Unavailable Care Team Providers Care Wood Pile Driver Operator Name Role Phone Shauna DILLARD Unavailable Unavailable Problems This patient has no known problems. Allergies, Adverse Reactions, Alerts This patient has no known allergies or adverse reactions. Medications This patient has no known medications. Results Test Description Test Time Test Comments Text Results Atomic Results Result Comments FOOT RIGHT COMPLETE 2018-07-04 18:34:00 [facility] [address] [place] [address] Patient Name: MARIANGEL JORDAN MR #: [id number] : 1985 Age/Sex: 32/M Req #: [id number] Adm Physician: Ordered by: ARNULFO SAVAGE ACOUSTICS TEACHER Report #: [id number] Location: ER Room/Bed: Procedure: [id number] DX/FOOT RIGHT COMPLETE Exam Date: Exam Time: REPORT STATUS: Signed Exam: Right foot series, 3 views. Clinical History: Right lateral foot pain after walking on treadmill Comparison: None. Findings: 3 views of the right foot. There is normal bone mineralization. Negative for acute, displaced fracture or dislocation. Joint spaces are preserved. Mild soft tissue swelling in the dorsal aspect of the foot. No osteolytic or osteoblastic lesions. Impression: 1. Mild soft tissue swelling in the dorsal aspect of the foot, without underlying bony abnormality. Signed by: Tiffany Griffiths.D. on 07/04/2018 6:35 PM Dictated By: TOMAS MARTINEZ MD 34 Transcribed By: TU on 07/04/181834 COPY TO: ARNULFO SAVAGE NP
--- OUTSIDE RECORDS SUMMARY | 2019-03-14 09:02 | XMS REPORT | Encounter Summary ---
Author Organization Unknown Address [address] [place] [address] Phone [phone] Reason for Visit Bilateral Medical Complaint Instructions 1. Hidradenitis suppurativa Keflex 500 mg capsule 2. Tinea corporis ketoconazole 2 % topical cream 3. Body mass index 30+ - obesity body mass index: care instructions 4. Elevated blood-pressure reading without diagnosis of hypertension elevated blood pressure: care instructions Discussion Note Pt is in NAD; Verbalizes understanding of all instructions with no questions at this time. Plan of Care Patient Instructions Keep area clean and dry. Clean with soap and water twice a day, pat dry. Take antibiotics as directed. Try not to scratch the rash. Shower or bathe daily and after you exercise. Keep your skin dry as much as possible to allow it to heal. Use selsum shampoo over the counter twice a week for 2 weeks. Do not share clothing, sports equipment, towels, or sheets to avoid spreading the fungi to other people. Keep area clean and dry. Clean with soap and water twice a day, pat dry and apply antifungal as directed. Take medications as prescribed. Follow up with your PCP or cream tester within 2-3 days if symptoms worsen as discussed. In case of emergency: worsening swelling or redness, tingling/numbness/loss of sensation and purple discoloration call 911 or go to nearest ER. Recommend follow a low sodium/fat/carb diet and exercise 30-45 mins/d 3-4 days a week once symptoms resolve. Reminders Provider Appointments None recorded. Lab None recorded. Referral None recorded. Procedures None recorded. Surgeries None recorded. Imaging None recorded. Medications Name Start Date atenolol 50 mg tablet TAKE 1 TABLET BY MOUTH EVERY DAY dicyclomine 20 mg tablet Keflex 500 mg capsule Take 1 capsule every 12 hours by oral route as directed for 10 days. ketoconazole 2 % topical cream APPLY TO THE AFFECTED AREA(S) BY TOPICAL ROUTE ONCE DAILY X 2 WEEKS omeprazole 40 mg capsule,delayed release paroxetine 30 mg tablet TAKE 1 TABLET BY MOUTH AT BEDTIME trazodone 100 mg tablet TAKE 1 TABLET(S) BY MOUTH AT BEDTIME NEEDED Medications Administered None recorded. Vitals Height Weight BMI Blood Pressure 6 ft 2 in 235 lbs 30.2 kg/m2 (1) 120/80 mm[Hg] (2) 120/78 mm[Hg] Lab Results None recorded. Allergies Code Code System Name Reaction Severity Status Onset NKDA Problems Name Status Onset Date Source Body Mass Index 25-29 - Overweight Active 04/11/2018 Tinea Corporis Active 06/12/2018 Body Mass Index 30+ - Obesity Active 06/12/2018 Anxiety Active 06/12/2018 Gastroesophageal Reflux Disease Active 06/12/2018 Irritable Bowel Syndrome Active 06/12/2018 Hidradenitis Suppurativa Active 06/12/2018 Elevated Blood-pressure Reading without Diagnosis of Hypertension Active 06/12/2018 Procedures Date Name Performed by 04/05/2018 Fistula Repair & Colostomy Information not available Vaccine List Vaccine Type influenza, injectable, quadrivalent 08/07/2017 influenza, seasonal, injectable 08/07/2015 Social History Smoking Status Former Smoker Past Encounters 06/12/2018 Hidradenitis Suppurativa; Tinea Corporis; Body Mass Index 30+ - Obesity; Elevated Blood-pressure Reading without Diagnosis of Hypertension Clarisa Sosa, [facility] [place] [facility]-C: [address] [place] [address], Ph. History of Present Illness Veei-Kcdzhlc-Oalfc-Skin Lesion-Bite 1 Reported By: Patient HPI: Location: arms. Quality: itchy, painful, flaking, tender, red, multiple, localized, swollen. Severity: worsening, moderate. Duration: has noted for 1-2 weeks. Onset/Timing: gradual onset. Context: no new detergents or skin products, no one else with similar rash, no sting or bite, scratching. Aggravating factors: clothing. Alleviating factors: nothing gives relief. Associated Symptoms: no fever/chills, no muscle aches, no headache, no cold symptoms, no nausea, no vomiting, no diarrhea, no urinary symptoms Review of Systems Basic Reported By: Patient Constitutional: Constitutional: no fever Eyes: Eyes: no eye complaints Viin-Jtdi-Mdrak-Throat: Ears: no ear complaints. Nose: no nose/sinus [...] complaints, no discharge Musculoskeletal: Musculoskeletal: no muscle aches, no muscle weakness, no arthralgias/joint pain, no back pain Skin: Skin: no abnormal / changing mole, no jaundice, rash, itching, growths/lesions Neurologic: Neurologic: no loss of consciousness, no weakness, no numbness, no seizures, no dizziness, no headaches Physical Exam Adult Basic, Adult Male Complete Reported By: Patient Constitutional: General Appearance: obese. Level of Distress: NAD. Ambulation: ambulating normally Psychiatric: Mental Status: active and alert. Orientation: to time, to place, to person Eyes: Lids and Conjunctivae: non-injected, no discharge Neck: Neck: supple. Lymph Nodes: no cervical LAD, no supraclavicular LAD, no axillary LAD Lungs: Respiratory effort: no dyspnea, no tachypnea, no use of accessory muscles, no intercostal retractions. Auscultation: breath sounds normal, good air movement Cardiovascular: Heart Auscultation: RRR, no murmurs Neurologic: Gait and Station: normal gait, normal station Skin: Inspection and palpation: no rash, no ulcer, no abnormal nevi, no induration, no nodules, good turgor, no jaundice, lesion Abdomen: Bowel Sounds: normal. Inspection and Palpation: soft, no tenderness, no guarding, no rebound tenderness, no masses, no CVA tenderness. Hernia: none palpable
--- OUTSIDE RECORDS SUMMARY | 2019-03-14 09:02 | XMS REPORT | Encounter Summary ---
Author Organization Unknown Address [address] [place] [address] Phone [phone] Reason for Visit Medical Complaint Instructions 1. Acute tonsillitis rapid strep group A, throat tonsillitis: care instructions Zithromax Z-Jame 250 mg tablet culture, respiratory 2. Hypertensive disorder elevated blood pressure: care instructions 3. Body mass index 30+ - obesity body mass index: care instructions learning about healthy weight Discussion Note: None recorded. Plan of Care Patient Instructions Take antibiotic as prescribed. Encouraged salt and warm water garggle. Change out toothbrush after 2 days. Drink plenty of fluids. Follow up with PCP or RTC if symptoms dont resolve 4-5 days. Reminders Provider Appointments None recorded. Lab Rapid Strep Group a, Throat 02/12/2019 [facility] Culture, Respiratory 02/12/2019 [facility] Referral None recorded. Procedures None recorded. Surgeries None recorded. Imaging None recorded. Medications Name Start Date atenolol 50 mg tablet Take 1 tablet every day by oral route as directed for 30 days. omeprazole 40 mg capsule,delayed release TAKE 1 CAPSULE BY MOUTH EVERY DAY paroxetine 30 mg tablet TAKE 1 TABLET BY MOUTH AT BEDTIME trazodone 100 mg tablet TAKE 1 TABLET BY MOUTH AT BEDTIME NEEDED FOR INSOMNIA Zithromax Z-Jame 250 mg tablet TAKE 2 TABLETS (500 MG) BY ORAL ROUTE ONCE DAILY FOR 1 DAY THEN 1 TABLET (250 MG) BY ORAL ROUTE ONCE DAILY FOR 4 DAYS Medications Administered None recorded. Vitals Height Weight BMI Blood Pressure 6 ft 2 in 252 lbs 32.4 kg/m2 (1) 122/82 mm[Hg] (2) 120/80 mm[Hg] Lab Results Date Name Specimen Result Interpretation Description Value Range Status Address Rapid Strep Group a, Throat Result negative [facility]: [address] [place] [address] Swab Location Left and Right tonsillar pillars [facility]: [address] [place] [address] Rapid Flu (A+B) Influenza a negative [facility]: [address] [place] [address] Influenza B negative [facility]: [address] [facility] Rapid Strep Group a, Throat Result positive [facility]: [address] [facility] Swab Location Left and Right tonsillar pillars [facility]: [address] [place] [address] Allergies Code Code System Name Reaction Severity [...] History Smoking Status Former Smoker Past Encounters 02/12/2019 Acute Tonsillitis; Hypertensive Disorder; Body Mass Index 30+ - Obesity SEBASTIAN Flynn-C: [address] [place] [address], Ph. 02/01/2019 Streptococcal Sore Throat; Tachycardia; Generalized Aches and Pains; Seasonal Allergic Rhinitis; Body Mass Index 30+ - Obesity; Abnormal Blood Pressure SEBASTIAN Ahmadi: [address] [place] [address], Ph. History of Present Illness Throat-Oral Complaint Reported By: Patient HPI: Location: throat. Quality: sore throat. Severity: moderate. Duration: 1 days. Onset/Timing: gradual. Context: no sick contacts, no foreign travel, non- smoker, allergies. Modifying factors: OTC medication; recently treated for strep, improved, pain returned. Associated Symptoms: no fever, no headache, no body aches, no sputum production, no shortness of breath, no wheezing, no morning cough, no vomiting, no diarrhea, no rash, sore throat Review of Systems Basic Reported By: Patient Constitutional: Constitutional: no fever Eyes: Eyes: no eye complaints Woup-Eilu-Kvdoe-Throat: Nose: no nose/sinus problems. Mouth/Throat: no bleeding [...] Adult Basic, Adult Female Complete, Adult Male Complete Reported By: Patient Constitutional: General Appearance: obese. Level of Distress: NAD. Ambulation: ambulating normally Psychiatric: Mental Status: active and alert. Orientation: to time, to place, to person Eyes: Lids and Conjunctivae: non-injected, no discharge, no pallor. Pupils: PERRLA Sea-Lsvq-Tauir-Throat: Ears: no lesions on external ear, no outer ear tenderness, EACs clear, TMs clear. Hearing: no hearing loss. Nose: no lesions on external nose, nares patent, no septal deviation, nasal passages clear, no sinus tenderness, no nasal discharge. Lips, Teeth, and Gums: no mouth or lip ulcers, no bleeding gums, normal dentition. Oropharynx: moist mucous membranes, no exudates, erythema, tonsils enlarged 2+ Neck: Neck: supple, trachea midline, no masses, FROM. Lymph Nodes: no supraclavicular LAD, posterior cervical LAD. Thyroid: no enlargement, non-tender, no nodules Lungs: Respiratory effort: no dyspnea, no tachypnea, no use of accessory muscles, no intercostal retractions. Auscultation: breath sounds normal Cardiovascular: Heart Auscultation: RRR, no murmurs Neurologic: Gait and Station: normal gait Skin: Inspection and palpation: no rash, no lesions, no ulcer, no abnormal nevi, no induration, no nodules, good turgor, no jaundice
--- OUTSIDE RECORDS SUMMARY | 2019-03-14 09:02 | XMS REPORT | Summary of Care ---
Author Author ISIDORO Brizuela, VINNY Organization Unknown Address Unknown Phone Unavailable Care Team Providers Care Care Program Director Name Role Phone JESS Ibrahim, PIPPA Unavailable Unavailable DAVID HAYWOOD M.D. Unavailable Unavailable SOLO CAMPOS MD Unavailable Unavailable Unavailable Unavailable Functional Status Name Dates Details Functional status health issues are not documented Status: Name Dates Details Cognitive status health issues are not documented Status: Problems Name Dates Details Panic disorder (300.01, F41.0) Status: Active Sweating Status: Active Anxiety and depression (300.00, F41.8) Status: Active Blood pressure elevated (401.9, I10) Status: Active Thrush (112.0, B37.0) Status: Active Oral thrush (112.0, B37.0) Status: Active Perianal abscess (566, K61.0) Status: Active IBS (irritable bowel syndrome) (564.1, K58.9) Status: Active Medications Name Dates Details PARoxetine HCl - 20 MG Oral Tablet TAKE 1 TABLET DAILY. Quantity: 30 YOBANY Ibrahim, DAVID * Start : 16-Jul-2016 Active TraZODone HCl - 100 MG Oral Tablet TAKE 1 TABLET AT BEDTIME. * Refills: 0 Active Atenolol 50 MG Oral Tablet TAKE 1 TABLET DAILY. * Refills: 0 Active 45 Tablet Bottle Dicyclomine HCl - 20 MG Oral Tablet TAKE 1 TABLET TWICE DAILY. * Quantity: 60 Refills: 3 JESS Ibrahim, PIPPA * Start : 10-Nov-2017 Active Allergies and Adverse Reactions Name Dates Details No Known Drug Allergies (Allergy) Status: Active Procedures Procedure Dates Details History of Incision And Drainage Of Pilonidal Cyst Completed History of Open Treatment Tibial Shaft & Fibular Fracture With Implant Completed Immunization Name Dates Details Immunizations not documented Family History Name Dates Details Family history of lymphoma (V16.7, Z80.7) Status: Active Family history of Anxiety (300.00, F41.9) Status: Active Name Dates Details Family history of hypertension (V17.49, Z82.49) Status: Active Name Dates Details Family history of Anxiety (300.00, F41.9) Status: Active Name Dates Details Family history of depression (V17.0, Z81.8) Status: Active Social History Name Dates Details - Status: Name Dates Details Former smoker Vital Signs Date Test Result Details :45 BP Systolic 116 mm[Hg] Status: Comments: Location: LUE; Position: Sitting BP Diastolic 75 mm[Hg] Status: Comments: Location: LUE; Position: Sitting Height 73 in Status: Weight 230 lb Status: Body Mass Index Calculated 30.35 kg/m2 Status: Body Surface Area Calculated 2.28 m2 Status: Temperature 98.3 f Status: Comments: Method: Oral Heart Rate 73 /min Status: Comments: Location: L Radial; Quality: Normal :19 BP Systolic 118 mm[Hg] Status: Comments: Location: LUE; Position: Sitting BP Diastolic 73 mm[Hg] Status: Comments: Location: LUE; Position: Sitting Height 73 in Status: Weight 117 lb Status: Body Mass Index Calculated 15.44 kg/m2 Status: Body Surface Area Calculated 1.71 m2 Status: Temperature 98 f Status: Comments: Method: Oral Heart Rate 101 /min Status: Comments: Location: L Radial; Quality: Normal Results Date Description Value Details Results not documented Plan of Care Name Dates Details Planned Observations Planned Goals not documented Interventions Provided Plan* CPM * F/u with Colorectal surgeon * Patient will call us after procedure or in 6 months to schedule a repeat colonoscopy and r/o IBD. Instructions Name Dates Details Instructions not documented Encounters Appointment; DAVID HAYWOOD M.D. Encounter Diagnosis: Problem not documented On: 08-Jun-2016 14:30 Appointment; DAVID HAYWOOD M.D. Encounter Diagnosis: Problem not documented On: 29-Jun-2016 11:30 Appointment; MATA VENEGAS LCSW Encounter Diagnosis: Problem not documented On: 09-Jul-2016 13:30 Appointment; DAVID HAYWOOD M.D. Encounter Diagnosis: Problem not documented On: 16-Jul-2016 11:30 Appointment; DAVID HAYWOOD M.D. Encounter Diagnosis: Problem not documented On: 13-Aug-2016 9:30 Appointment; PIPPA MERCADO M.D. Encounter Diagnosis: Problem not documented On: 10-Nov-2017 16:00 Appointment; PIPPA MERCADO M.D. Encounter Diagnosis: Problem not documented On: 05-Dec-2017 14:45 Appointment; PIPPA MERCADO M.D. Encounter Diagnosis: Problem not documented On: 05-Jan-2018 13:30 Appointment; PIPPA MERCADO M.D. Encounter Diagnosis: Problem not documented On: 27-Jan-2018 13:45
[2019-03-14 13:35] VITALS: BP 119/66
--- NOTE | 2019-03-15 23:46 | Operative Report ---
DATE OF PROCEDURE: 03/14/2019 SURGEON: Young Pace MD PREOPERATIVE DIAGNOSES: 1. Comminuted left distal humeral shaft fracture. 2. Neurapraxia of radial nerve. POSTOPERATIVE DIAGNOSES: 1. Comminuted left distal humeral shaft fracture. 2. Neurapraxia of radial nerve. OPERATIONS AND PROCEDURES PERFORMED: 1. The patient underwent an open reduction, internal fixation of a comminuted left humeral shaft fracture. 2. Allograft bone grafting of left humeral shaft fracture. DISC PAD KNOCKOUT WORKER: SEBASTIAN Braga. ANESTHESIA: General endotracheal intubation anesthesia. IV FLUIDS: Per the anesthesia record. BRIEF DISCUSSION OF THE PATIENT'S OPERATIVE PROCEDURE: Mr. Lyons was taken to the operating room, placed in supine position on the operating table. Following induction of general anesthesia as well as endotracheal intubation, the patient's left upper extremity was examined under anesthesia. He was found to have bruise and ecchymosis involving the upper arm. Fluoroscopic evaluation of the upper arm demonstrated a comminuted distal 3rd humerus fracture with displacement. The patient's upper extremities were prepped and draped in a standard surgical fashion. Following induction of general anesthesia as well as endotracheal intubation, the patient was turned to a lateral position. He was held in place with a well-padded dimas bag. His axillary roll was placed in the right chest wall. His bilateral lower extremities were also well padded at this time. The patient's left upper extremity was then prepped and draped in standard surgical fashion. Standard posterior approach to the humerus was undertaken. Incision was created in the posterior aspect of the arm to the level of the elbow. This incision was carried through the skin only. Blunt dissection used to deepen the incision to the level of the triceps musculature. The triceps was then divided in its midportion distally to the flare of the olecranon fossa. This revealed a 3-part humeral shaft fracture. The wound was copiously irrigated. Fracture hematoma was excised. The butterfly fragment was reduced and affixed to the distal fragment with a single screw. The fracture was then reduced and held in place with fracture reduction clamps while a second screw was used to transfix the butterfly fragment to the proximal fracture fragment. A plate was then contoured to the posterior aspect of the humerus. This plate was then affixed to the humerus with combinations of cortical and locking screws. Fluoroscopic evaluation demonstrated anatomic realignment of the injury. The wound was copiously irrigated. The fracture was then bone grafted with allograft bone graft circumferentially. The triceps fascia was then closed. The remaining soft tissues were closed in a multilayer fashion. Sterile dressings were applied. The patient was provided a well-padded posterior splint, awakened, and taken to the postanesthesia care unit in stable condition. MD BIRD Saenz/GAIL /[id number]
== END | disposition home or self-care (01) ==
LOC: OR 06:45
PROVIDERS: ATTEND Specialist
DX: S42.352A Displaced comminuted fracture of shaft of humerus, left arm, initial encounter for closed fracture (principal); S44.22XA Injury of radial nerve at upper arm level, left arm, initial encounter; G47.33 Obstructive sleep apnea (adult) (pediatric); I10 Essential (primary) hypertension; K21.9 Gastro-esophageal reflux disease without esophagitis; K58.9 Irritable bowel syndrome, unspecified; K22.70 Barrett's esophagus without dysplasia; F41.9 Anxiety disorder, unspecified; X58.XXXA Exposure to other specified factors, initial encounter; Y93.72 Activity, wrestling; Y99.8 Other external cause status; Z01.810 Encounter for preprocedural cardiovascular examination; Z68.31 Body mass index [BMI] 31.0-31.9, adult; Z87.891 Personal history of nicotine dependence
CPT/HCPCS: 24515; 93005; C1713 ×9; J0690; J1100; J1170; J1885; J2001 ×2; J2250; J2405; J2704; J2795; J3490